=== PATIENT | female | born 1985 | race Caucasian/White ===

== ENCOUNTER 2022-12-06 20:52 | Inpatient (IN) | payer OTHER ==
[2022-12-06] MEDS ORDERED: ONDANSETRON 4 MG/2 ML VIAL ONE (22:35)
[2022-12-06] MEDS: DEXTROSE 5%-LACTATED RINGERS 1,000 ML IV SCH (22:40)
[2022-12-06] MEDS ORDERED: ACETAMINOPHEN 1000 MG/100 ML BAG IVPB ONE (22:40)
[2022-12-06] MEDS ORDERED: ONDANSETRON 4 MG/2 ML VIAL IM PRN (22:41)
[2022-12-06] MEDS ORDERED: ceFAZolin 2 GRAM PREMIX BAG IVPB ONE (22:45)
[2022-12-06] MEDS ORDERED: CLINDAMYCIN 600MG PREMIX IVPB 600 MG/50 ML BAG IVPB ONE (22:51)
[2022-12-06] MEDS ORDERED: ONDANSETRON 4 MG/2 ML VIAL IVPB ONE (23:21)
[2022-12-06 23:25] LABS: URINE APPEARANCE CLOUDY; URINE BILIRUBIN NEGATIVE (NEGATIVE); URINE COLOR DK YELLOW; URINE GLUCOSE (UA) NEGATIVE (NEGATIVE); URINE KETONE 3+ (NEGATIVE); URINE LEUK ESTERASE 2+ (NEGATIVE); URINE NITRITE POSITIVE (NEGATIVE); URINE PROTEIN 2+ (NEGATIVE)
[2022-12-06 23:28] LABS: HEMATOCRIT 34.1 % (32.4-45.2); HEMOGLOBIN 11.3 GM/dL (10.7-15.3); MCHC 33.1 g/dl (32.0-36.0); MEAN CELL VOLUME 90.5 fl (80-96); PHENCYCLIDINE,URINE NEGATIVE (NEGATIVE); PLATELET COUNT 248 10^3/uL (134-434); RBC 3.77 M/mm3 (3.60-5.2); RDW 13.7 % (11.6-15.6); WHITE BLOOD COUNT 14.8 K/mm3 (4.0-10.0)
[2022-12-06 23:29] LABS: COCAINE, UR NEGATIVE (NEGATIVE); METHADONE, UR NEGATIVE (NEGATIVE); OPIATES, URI NEGATIVE (NEGATIVE); URINE BARBITURATES NEGATIVE (NEGATIVE); URINE BENZODIAZEPINES NEGATIVE (NEGATIVE)
[2022-12-06 23:30] LABS: URINE AMPHETAMINES NEGATIVE (NEGATIVE)
[2022-12-06] MEDS ORDERED: ACETAMINOPHEN INJECTION 100 ML IVPB ONE (23:30)
[2022-12-06 23:35] LABS: INR 1.03 (0.83-1.09); PROTHROMBIN TIME (PATIENT) 11.9 SEC (9.7-13.0)
[2022-12-06 23:47] LABS: CALCIUM 8.3 mg/dL (8.5-10.1); EPI CELLS 128 /uL (0-25.1); HYALINE CASTS 9 /uL (0-3.1); URINE BACTERIA 12971 /uL (0-1359); URINE RBC 12 /uL (0-23.9); URINE WBC 94 /uL (0-25.8)
[2022-12-06 23:48] LABS: BLOOD UREA NITROGEN 11.2 mg/dL (7-18)
[2022-12-06 23:51] LABS: CREATININE 0.7 mg/dL (0.55-1.3)
[2022-12-06] MEDS ORDERED: CLINDAMYCIN 900 MG PREMIX IVPB 900 MG/50 ML BAG IVPB ONE (23:55)
[2022-12-07] MEDS ORDERED: CLINDAMYCIN 900 MG PREMIX IVPB 900 MG/50 ML BAG IVPB ONE
[2022-12-07 00:05] LABS: ANISOCYTOSIS 0; MACROCYTOSIS 0
[2022-12-07 00:17] LABS: SYPHILIS W/ RPR CONF NON-REACTIVE (NONREACTIVE)
[2022-12-07 00:46] LABS: HIV INTERPRETATION NEGATIVE (NEGATIVE)
[2022-12-07] MEDS ORDERED: ACETAMINOPHEN 325 MG TABLET (FP) ONE (03:19)
[2022-12-07] MEDS: ACETAMINOPHEN 325 MG TABLET (FP) PO PRN ×3 (03:20→17:40)
[2022-12-07] MEDS: DEXTROSE 5%-LACTATED RINGERS 1,000 ML IV SCH ×2 (04:30→17:33)
[2022-12-07 04:38] VITALS: BMI 34.0
[2022-12-07 07:53] LABS: HEMATOCRIT 30.1 % (32.4-45.2); HEMOGLOBIN 9.8 GM/dL (10.7-15.3); MCH 29.5 pg (25.7-33.7); MCHC 32.8 g/dl (32.0-36.0); MEAN CELL VOLUME 90.1 fl (80-96); MEAN PLT VOLUME 8.6 fl (7.5-11.1); PLATELET COUNT 228 10^3/uL (134-434); RBC 3.34 M/mm3 (3.60-5.2); RDW 13.7 % (11.6-15.6); WHITE BLOOD COUNT 19.5 K/mm3 (4.0-10.0)
[2022-12-07 08:10] LABS: ALBUMIN 2.3 g/dl (3.4-5.0); BLOOD UREA NITROGEN 9.1 mg/dL (7-18)
[2022-12-07 08:13] LABS: CREATININE 0.7 mg/dL (0.55-1.3)
[2022-12-07 08:14] LABS: BILIRUBIN,TOTAL 0.5 mg/dL (0.2-1); TOT PROT 5.4 g/dl (6.4-8.2)
[2022-12-07] MEDS: CLINDAMYCIN 900 MG PREMIX IVPB 900 MG/50 ML BAG IVPB SCH ×3 (09:39→18:42)
[2022-12-07 09:49] LABS: ANISOCYTOSIS 0; MACROCYTOSIS 0
[2022-12-07] MEDS ORDERED: VANCOMYCIN/WATER FOR INJ (PEG) 1,000 MG/200 ML BAG IVPB ONE (12:00)
[2022-12-07] MEDS: AZTREONAM 1 GM in DEXTROSE 5%-WATER - 50 ML IVPB SCH ×2 (12:06→17:31)
[2022-12-07] MEDS: oxyCODONE HCL 5 MG TABLET PO PRN ×2 (12:12→19:49)
[2022-12-07] MEDS ORDERED: VANCOMYCIN 1 GRAM (PRE-DOCKED) 1,000 MG/200 ML BAG IVPB ONE (12:12)
[2022-12-08] MEDS: CLINDAMYCIN 900 MG PREMIX IVPB 900 MG/50 ML BAG IVPB SCH ×3 (02:11→18:16)
[2022-12-08] MEDS: ACETAMINOPHEN 325 MG TABLET (FP) PO PRN ×2 (03:22→18:13)
[2022-12-08] MEDS: AZTREONAM 1 GM in DEXTROSE 5%-WATER - 50 ML IVPB SCH ×3 (03:22→17:40)
[2022-12-08] MEDS: PRENATAL VITAMINS W/ FOLIC ACID TABLET (FP) PO SCH (09:56)
[2022-12-08] MEDS: DOCUSATE SODIUM 100 MG CAPSULE (FP) PO SCH (09:56)
[2022-12-08] MEDS: oxyCODONE HCL 5 MG TABLET PO PRN ×2 (09:56→20:30)
[2022-12-08] MEDS: ELECTROLYTE-148 SOLN 1,000 ML IV SCH (13:12)
[2022-12-08] MEDS: DEXTROSE 5%-LACTATED RINGERS 1,000 ML IV SCH (20:09)
[2022-12-09] MEDS: AZTREONAM 1 GM in DEXTROSE 5%-WATER - 50 ML IVPB SCH ×3 (01:25→17:31)
[2022-12-09] MEDS: CLINDAMYCIN 900 MG PREMIX IVPB 900 MG/50 ML BAG IVPB SCH ×3 (02:12→18:08)
[2022-12-09] MEDS: ELECTROLYTE-148 SOLN 1,000 ML IV SCH ×2 (02:12→17:27)
[2022-12-09 08:32] LABS: BASO % 0.4 % (0-2.0); EOS % 1.7 % (0-4.5); HEMATOCRIT 28.9 % (32.4-45.2); LYMPH % 21.6 % (8-40); MCHC 34.5 g/dl (32.0-36.0); MEAN CELL VOLUME 89.7 fl (80-96); MEAN PLT VOLUME 9.4 fl (7.5-11.1); MONO % 7.5 % (3.8-10.2); NEUT % 68.8 % (42.8-82.8); PLATELET COUNT 228 10^3/uL (134-434); RBC 3.22 M/mm3 (3.60-5.2); RDW 13.6 % (11.6-15.6); WHITE BLOOD COUNT 6.3 K/mm3 (4.0-10.0)
[2022-12-09 08:47] LABS: CALCIUM 8.1 mg/dL (8.5-10.1)
[2022-12-09 08:48] LABS: BLOOD UREA NITROGEN 6.3 mg/dL (7-18)
[2022-12-09 08:50] LABS: CREATININE 0.4 mg/dL (0.55-1.3)
[2022-12-09] MEDS: DOCUSATE SODIUM 100 MG CAPSULE (FP) PO SCH (09:47)
[2022-12-09] MEDS: PRENATAL VITAMINS W/ FOLIC ACID TABLET (FP) PO SCH (09:47)
[2022-12-09] MEDS: ACETAMINOPHEN 325 MG TABLET (FP) PO PRN (10:47)
[2022-12-09] MEDS: oxyCODONE HCL 5 MG TABLET PO PRN (18:05)
[2022-12-09 21:26] VITALS: RESP 17
[2022-12-10] MEDS: AZTREONAM 1 GM in DEXTROSE 5%-WATER - 50 ML IVPB SCH ×2 (01:30→10:49)
[2022-12-10] MEDS: CLINDAMYCIN 900 MG PREMIX IVPB 900 MG/50 ML BAG IVPB SCH ×2 (02:00→09:35)
[2022-12-10] MEDS: DOCUSATE SODIUM 100 MG CAPSULE (FP) PO SCH (09:39)
[2022-12-10] MEDS: PRENATAL VITAMINS W/ FOLIC ACID TABLET (FP) PO SCH (09:39)
[2022-12-10] MEDS: ACETAMINOPHEN 325 MG TABLET (FP) PO PRN (12:33)
[2022-12-10] MEDS ORDERED: CLINDAMYCIN HCL 150 MG CAPSULE (FP) PO SCH (14:00)
[2022-12-10] MEDS ORDERED: NITROFURANTOIN MACROCRYSTAL 50 MG CAPSULE (FP) PO SCH (18:00)
[2022-12-10 19:01] VITALS: BP 122/83; PULSE 104; TEMP 98.8
== END 2022-12-10 19:15 | disposition home or self-care (01) | DRG 832 ==
LOC: JER 20:52 → JLDR 12-07 02:00 → J3W 12-07 09:42
PROVIDERS: ADMIT Obstetrics & Gynecology; ATTEND Obstetrics & Gynecology
DX: O23.43 Unspecified infection of urinary tract in pregnancy, third trimester (principal); N39.0 Urinary tract infection, site not specified; B96.20 Unspecified Escherichia coli [E. coli] as the cause of diseases classified elsewhere; K08.89 Other specified disorders of teeth and supporting structures; D72.829 Elevated white blood cell count, unspecified; Z3A.38 38 weeks gestation of pregnancy; Z37.0 Single live birth
CPT/HCPCS: 0241U-QW; 36415; 76775-TC; 76801-TC; 80048; 80053; 80307; 81003; 85025; 85610; 86762; 86780; 86850; 86900; 86901; 87040; 87086; 87186; 87340; 87389; 99285-25